=== PATIENT | female | born 1930 | race Caucasian/White ===

== ENCOUNTER 2018-09-26 09:10 | Emergency (ER) | payer MEDICARE ==
[2018-09-26 09:27] VITALS: BP 153/88; PULSE 84; O2SAT 95
--- NOTE | 2018-09-26 09:27 | ERPHSYRPT ---
- History of Present Illness Time Seen by Provider: 09/26/18 09:20 Source: patient, family Exam Limitations: no limitations Physician History: 87 y/o white female attempted to remove her pants and tripped over them. occurred last pm. no head or neck injury. however, she has tenderness across lower back and upper bony pelvis. no other complaints. pt ambulates fine but sore. Timing/Duration: other (last night) Method of Injury: fall Quality: aching Back Pain Location: lumbar spine Severity of Pain-Max: mild Severity of Pain-Current: mild Modifying Factors: Improves With: movement Associated Symptoms: denies symptoms Previous symptoms: no prior history Allergies/Adverse Reactions: No Known Drug Allergies Allergy (Verified 09/26/18 09:15) Home Medications: Amlodipine Besylate 5 mg PO DAILY 09/26/18 [History] Aspirin EC 81 mg [Ecotrin 81 mg] 81 mg PO DAILY 09/26/18 [History] Lisinopril 20 mg [Zestril 20 MG] 30 mg PO BID 09/26/18 [History] Meclizine HCl 12.5 mg PO TID 09/26/18 [History] Metoprolol Tartrate 25 mg PO BID 09/26/18 [History] - Review of Systems Constitutional: No Symptoms Eyes: No Symptoms Ears, Nose, & Throat: No Symptoms Respiratory: No Symptoms Cardiac: No Symptoms Abdominal/Gastrointestinal: No Symptoms Genitourinary Symptoms: No Symptoms Musculoskeletal: Back Pain, Fall Skin: No Symptoms Neurological: No Symptoms Psychological: No Symptoms Endocrine: No Symptoms Hematologic/Lymphatic: No Symptoms Immunological/Allergic: No Symptoms All Other Systems: Reviewed and Negative - Past Medical History Pertinent Past Medical History: Yes Neurological History: No Pertinent History ENT History: No Pertinent History Cardiac History: No Pertinent History Respiratory History: No Pertinent History Endocrine Medical History: No Pertinent History Musculoskeletal History: Degenerative Disk Disease GI Medical History: No Pertinent History History: No Pertinent History Psycho-Social History: No Pertinent History Female Reproductive Disorders: No Pertinent History - Past Surgical History Neuro Surgical History: No Pertinent History Cardiac: No Pertinent History Respiratory: No Pertinent History Gastrointestinal: No Pertinent History Genitourinary: No Pertinent History Musculoskeletal: No Pertinent History Female Surgical History: No Pertinent History - Nursing Vital Signs Nursing Vital Signs: Initial Vital Signs Temperature 97.4 F 09/26/18 09:16 Pulse Rate 84 09/26/18 09:16 Respiratory Rate 18 09/26/18 09:16 Blood Pressure 153/88 09/26/18 09:16 O2 Sat by Pulse Oximetry 95 09/26/18 09:16 Pain Scale Pain Intensity [Lower Back] 4 Pain Intensity 4 - Physical Exam General Appearance: no apparent distress, alert Eye Exam: PERRL/EOMI Ears, Nose, Throat Exam: normal ENT inspection, moist mucous membranes Neck Exam: normal inspection, non-tender, supple, full range of motion Respiratory Exam: normal breath sounds, lungs clear, airway intact, No chest tenderness, No respiratory distress, No accessory muscle use, No rhonchi, No wheezing, No stridor Cardiovascular Exam: regular rate/rhythm, normal heart sounds, normal peripheral pulses Gastrointestinal Exam: soft, normal bowel sounds, No tenderness, No guarding Pelvic Exam: not done Rectal Exam: not done Back Exam: other (tenderness across lumbar level and top of bilat iliac crests) Extremity Exam: normal inspection, normal range of motion, pelvis stable Neurologic Exam: alert, oriented x 3, cooperative, 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 no acute fx or dislocation. Counseled pt/family regarding: diagnosis, need for follow-up, rad results - Departure Time of Disposition: 10:24 Departure Disposition: Home Clinical Impression: Fall, Contusion Condition: Stable Critical Care Time: No Referrals: EVERARDO ADAN MD [Primary Care Provider] - Additional Instructions: use plain tylenol during the day and norco at night if needed. follow up with primary doctor for persistent symptoms Prescriptions: Hydrocodone/APAP 5-325 Tab^^^ [[place] 5-325 Tablet^^^] 1 tab PO QHS PRN #4 tablet MDD 1 PRN Reason: Pain
--- NOTE | 2018-09-26 10:19 | XRAY ---
Indication: Pain following fall. Comparison: None 3 views of the lumbar spine demonstrates 5 lumbar vertebral segments with osteopenia, mild/moderate multilevel degenerative spondylosis greatest at L4-L5, and heavy scattered vascular calcifications. No other bony, articular, or soft tissue abnormalities.
--- NOTE | 2018-09-26 10:21 | XRAY ---
Indication: Pain following fall. 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 No other bony, articular, or soft tissue abnormalities.
== END 2018-09-26 11:09 | disposition home or self-care (01) ==
LOC: ED 09:10
DX: S30.0XXA Contusion of lower back and pelvis, initial encounter (principal); M54.5 Low back pain; W01.10XA Fall on same level from slipping, tripping and stumbling with subsequent striking against unspecified object, initial encounter; Z79.899 Other long term (current) drug therapy
CPT/HCPCS: 72100; 72170; 99283

== ENCOUNTER 2019-08-29 15:28 | Observation (INO) | payer MEDICARE ==
[2019-08-29] MEDS ORDERED: ANTIVERT 25 MG PO ONE (16:10)
[2019-08-29] MEDS ORDERED: ZOFRAN ODT 4 MG PO ONE (16:11)
[2019-08-29] MEDS ORDERED: ANTIVERT 25 MG ONE (16:25)
[2019-08-29] MEDS ORDERED: ZOFRAN ODT 4 MG ONE (16:26)
--- NOTE | 2019-08-29 17:26 | ERPHSYRPT ---
- History of Present Illness Time Seen by Provider: 08/29/19 16:00 Source: patient Exam Limitations: no limitations Patient Subjective Stated Complaint: STATES HAS HX VERTIGO. TAKES MECLIZINE. TODAY IS HAVING INCREASED DIZZINESS TODAY WITH NAUSEA. UNABLE TO WALK AT THIS TIME AND IS NAUEATED. TOOK TWO MECLIZINE TODAY WITHOUT RELIEF. DENIES ANY OTHER C/O. Triage Nursing Assessment: TO ROOM PER W/C. SKIN W/D, COLOR NORMAL, RESP EASY. PATIENT UNABLE TO TRANSFER TO BED PER SELF. ALSO HAVING NAUSEA AT THIS TIME. Physician History: 88 years old female with history of hypertension,vertigo present in the ER with chief complaint of worsening vertiginous symptoms for the last 2-3 days, intermittent, has taken 212.5 mg of meclizine but not much earlier. She was getting off balance area. Did not report any follow. Denies any numbness tingling or focal weakness. Patient reports room spinning sensation and it gets worse whenever she gets up or tries to walk and better with lying down/ testing. Pupils are similar symptoms multiple times in the past.patient reports she was seen at the [facility] recently with negative CAT scan and blood work was sent home off her some IV medications air. She does not want any kind of workup done here but wants some symptomatic treatment. Timing/Duration: day(s) (3), intermittent, worse Severity: moderate Deficits: off balance Baseline/Normal Cognition: alert oriented x 3 Current Cognition: alert oriented x 3 Baseline Gait: walks w/o assistance Associated Symptoms: nausea, No vomiting, No weakness, No numbness/tingling in legs/feet, No paresthesia Allergies/Adverse Reactions: No Known Drug Allergies Allergy (Verified 08/29/19 15:54) Home Medications: Amlodipine Besylate 5 mg PO DAILY 09/26/18 [History] Aspirin EC 81 mg [Ecotrin 81 mg] 81 mg PO DAILY 09/26/18 [History] Lisinopril 20 mg [Zestril 20 MG] 30 mg PO BID 09/26/18 [History] Meclizine HCl 12.5 mg PO TID 09/26/18 [History] Metoprolol Tartrate 25 mg PO BID 09/26/18 [History] Hx Tetanus, Diphtheria Vaccination/Date Given: No Hx Influenza Vaccination/Date Given: Yes Hx Pneumococcal Vaccination/Date Given: Yes - Review of Systems Constitutional: No Symptoms Eyes: No Symptoms Ears, Nose, & Throat: No Symptoms Respiratory: No Symptoms Cardiac: No Symptoms Abdominal/Gastrointestinal: No Symptoms Genitourinary Symptoms: No Symptoms Musculoskeletal: No Symptoms Skin: No Symptoms Neurological: Vertigo Psychological: No Symptoms Endocrine: No Symptoms Hematologic/Lymphatic: No Symptoms - Past Medical History Pertinent Past Medical History: Yes Neurological History: No Pertinent History ENT History: No Pertinent History Cardiac History: No Pertinent History Respiratory History: No Pertinent History Endocrine Medical History: No Pertinent History Musculoskeletal History: Degenerative Disk Disease GI Medical History: No Pertinent History History: No Pertinent History Psycho-Social History: No Pertinent History Female Reproductive Disorders: No Pertinent History - Past Surgical History Past Surgical History: Yes Neuro Surgical History: No Pertinent History Cardiac: No Pertinent History Respiratory: No Pertinent History Gastrointestinal: Appendectomy Genitourinary: No Pertinent History Musculoskeletal: No Pertinent History Female Surgical History: No Pertinent History Other Surgical History: vani shoulders, rt hip replacement - Social History Smoking Status: Never smoker Exposure to second hand smoke: No Drug Use: none Patient Lives Alone: Yes - Female History Hx Now: No - Nursing Vital Signs Nursing Vital Signs: Initial Vital Signs Temperature 97.4 F 08/29/19 15:40 Pulse Rate 69 08/29/19 15:40 Respiratory Rate 18 08/29/19 15:40 Blood Pressure 158/96 08/29/19 15:40 O2 Sat by Pulse Oximetry 93 L 08/29/19 15:40 Pain Scale Pain Intensity 0 - Jenelle Coma Scale Best Eye Response ([place]): (4) open spontaneously Best Verbal Response (Jenelle): (5) oriented Best Motor Response (Jenelle): (6) obeys commands [place] Total: 15 - Physical Exam General Appearance: no apparent distress, alert Eye Exam: bilateral eye: normal inspection, PERRL, EOMI Ears, Nose, Throat Exam: normal ENT inspection, TMs normal, pharynx normal, moist mucous membranes Neck Exam: normal inspection, non-tender, supple, full range of motion Respiratory: normal breath sounds, lungs clear Cardiovascular: regular rate/rhythm, normal heart sounds Gastrointestinal: soft, normal bowel sounds, No tenderness Back Exam: normal inspection Extremity Exam: normal inspection, normal range of motion, pelvis stable Mental Status: alert, oriented x 3, cooperative manufacturing engineering technician Exam: normal hearing, normal speech, PERRL, No facial droop, No facial paresthesias Coordination/Gait: normal finger to nose, normal cerebellar function Motor/Sensory: no motor deficit, no sensory deficit, no pronator drift, negative Babinski's sign, No sensory deficit DTR: bicep (R): 2+, bicep (L): 2+, knee (R): 2+, knee (L): 2+ Skin Exam: normal color SpO2 Interpretation: normal SpO2: 91 O2 Delivery: Room Air - Course Nursing assessment & vital signs reviewed: Yes Ordered Tests: Medication Summary Discontinued Medications Generic Name Dose Route Start Last Admin Trade Name Huber PRN Reason Stop Dose Admin Meclizine HCl 25 mg 08/29/19 16:10 08/29/19 16:27 Antivert 25 Mg PO 08/29/19 16:11 25 mg STAT ONE Administration Meclizine HCl Confirm 08/29/19 16:25 Antivert 25 Mg Administered 08/29/19 16:26 Dose 25 mg .ROUTE .STK-MED ONE Ondansetron HCl 4 mg 08/29/19 16:11 08/29/19 16:26 Zofran Odt 4 Mg PO 08/29/19 16:12 4 mg STAT ONE Administration Ondansetron HCl Confirm 08/29/19 16:26 Zofran Odt 4 Mg Administered 08/29/19 16:27 Dose 4 mg .ROUTE .STK-MED ONE - Progress Progress: improved Progress Note: 88 years old is evaluated for vertiginous symptoms. It seems symptomatically as. Her vertigo but cannot rule central out, recommended an off work Will workup but patient refused and wants only some symptomatic treatment as she had a full workup done recently and was negative. She does not have any focal neuro deficits are present. Discussed with patient and friend in detail about the risks of leaving without any workup, could be a stroke which she understands but still ddoes not want to do anything. I have given her meclizine , the evaluation her symptoms are completely improved and she wants to leave. She is given anticipatory warnings/guidance needing return to ER for any worsening she seems understanding. Patient doesdoes not seem confused altered at all. 08/29/19 17:28 Counseled pt/family regarding: need for follow-up - Departure Departure Disposition: Home Clinical Impression: Vertigo Condition: Stable Critical Care Time: No Referrals: EVERARDO ADAN MD [Primary Care Provider] - Instructions: Vertigo (a Type of Dizziness) (DC) Additional Instructions: drink plenty of fluids. Followup with primary care physician for reevaluation in 2-3 days. Continue with meclizine at home as recommended. Return to ER for worsening vertiginous symptoms, getting off balance, numbness tingling/weakness /visual disturbance etc.
[2019-08-29] MEDS ORDERED: Sodium Chloride 0.9% 1000 ML 1,000 ML IV STA (18:43)
[2019-08-29 19:02] LABS: BASOPHIL % 0.2 % (0.0-0.4); Basophil (Absolute #) 0.02 (0-0.4); Eosinophil % 0.5 % (0.00-5.0); Eosinophil (Absolute #) 0.05 (0-0.5); Hematocrit 37.7 % (35-47); Hemoglobin 12.3 gm/dl (12.0-16.0); Lymphocyte (Absolute #) 1.23 (1.0-4.6); Lymphocytes % 12.7 % (24.0-44.0); Mean Cell Volume 101.1 fl (78-100); Mean Corpuscular Hgb Concent. 32.6 g/dl (32-36); Mean Platelet Volume 9.8 fl (7.5-11.0); Monocyte (Absolute #) 0.35 (0.0-1.3); Monocytes % 3.6 % (0.0-12.0); Platelet Count 216 K/mm3 (150-450); Red Blood Count 3.73 M/mm3 (4.1-5.4); Red Cell Distribution Width 12.5 % (11.5-14.0); White Blood Count 9.7 K/mm3 (4.0-10.5)
[2019-08-29] MEDS ORDERED: Sodium Chloride 0.9% 1000 ML 1,000 ML ONE (19:11)
[2019-08-29 19:15] LABS: Amourphous Crystal FEW /HPF (NEGATIVE); Appearance CLOUDY (CLEAR); Bilirubin NEGATIVE (NEGATIVE); Blood NEGATIVE Ery/ul (0-5); Epithelial Cells RARE /HPF (FEW); Glucose NEGATIVE (NEGATIVE); Ketones NEGATIVE (NEGATIVE); Leukocyte Esterase TRACE (NEGATIVE); Nitrite NEGATIVE (NEGATIVE); Protein,Urine Dip NEGATIVE (Negative); Specific Gravity 1.017 (1.005-1.025); Urobilinogen NEGATIVE mg/dL (0-1)
[2019-08-29 19:19] LABS: ALBUMIN 4.4 g/dL (3.5-5.0); ANION GAP 13.4 MEQ/L (5-15); BILIRUBIN,TOTAL 0.3 mg/dL (0.2-1.3); Creatinine 1 0.98 mg/dL (0.52-1.04); MAGNESIUM 2.1 mg/dL (1.6-2.3); Total Protein 8.4 g/dL (6.3-8.2)
[2019-08-29] MEDS ORDERED: Zofran 4 MG/2 ML VIAL IV ONE (19:19)
[2019-08-29] MEDS ORDERED: Zofran 4 MG/2 ML VIAL ONE (19:20)
[2019-08-29] MEDS ORDERED: NovoLOG Insulin SQ PRN (21:25)
[2019-08-29] MEDS ORDERED: Zofran 4 MG/2 ML VIAL IV PRN ×2 (21:25→22:11)
[2019-08-29] MEDS ORDERED: TYLENOL 325 MG PO PRN (21:25)
[2019-08-29] MEDS ORDERED: Sodium Chloride 0.9% 1000 ML 1,000 ML IV SCH (21:25)
[2019-08-29] MEDS ORDERED: ANTIVERT 25 MG PO SCH (22:00)
[2019-08-30 04:40] LABS: ANION GAP 9.8 MEQ/L (5-15); BLOOD UREA NITROGEN 15 mg/dL (7-17); CHLORIDE 105 mmol/L (98-107); Calcium 8.6 mg/dL (8.4-10.2); Carbon Dioxide 28 mmol/L (22-30); Creatinine 1 0.82 mg/dL (0.52-1.04); Glucose 96 mg/dL (74-106); Potassium 4.1 mmol/L (3.5-5.1); SODIUM 139 mmol/L (137-145)
[2019-08-30 06:11] LABS: Absolute Neutrophil Ct (ANC) 5.42 (1.4-6.9); BASOPHIL % 0.1 % (0.0-0.4); Basophil (Absolute #) 0.01 (0-0.4); Eosinophil % 1.3 % (0.00-5.0); Hematocrit 34.8 % (35-47); Hemoglobin 11.6 gm/dl (12.0-16.0); Lymphocyte (Absolute #) 1.53 (1.0-4.6); Mean Cell Volume 101.2 fl (78-100); Mean Corpuscular Hemoglobin 33.7 pg (26-32); Mean Corpuscular Hgb Concent. 33.3 g/dl (32-36); Mean Platelet Volume 10.8 fl (7.5-11.0); Monocyte (Absolute #) 0.58 (0.0-1.3); Monocytes % 7.6 % (0.0-12.0); Platelet Count 149 K/mm3 (150-450); Red Blood Count 3.44 M/mm3 (4.1-5.4); Red Cell Distribution Width 12.3 % (11.5-14.0); White Blood Count 7.6 K/mm3 (4.0-10.5)
--- NOTE | 2019-08-30 07:50 | PCM.HP ---
History of Present Illness - Chief Complaint Chief Complaint: orthostatic hypotension History of Present Illness: is a 88 year old female with history of hypertension,vertigo present in the ER with chief complaint of worsening vertiginous symptoms for the last 2-3 days, intermittent, has taken 212.5 mg of meclizine but not much earlier. She was getting off balance area. Did not report any fall. Denies any numbness tingling or focal weakness. Patient reports room spinning sensation and it gets worse whenever she gets up or tries to walk and better with lying down/testing. Pupils are similar symptoms multiple times in the past.patient reports she was seen at the [facility] recently with negative CAT scan and blood work was sent home off her some IV medications air. She does not want any kind of workup done here but wants some symptomatic treatment. Timing/Duration: day(s) (3), intermittent, worse Severity: moderate Deficits: off balance Baseline/Normal Cognition: alert oriented x 3 Current Cognition: alert oriented x 3 Baseline Gait: walks w/o assistance Associated Symptoms: nausea, No vomiting, No weakness, No numbness/tingling in legs/feet, No paresthesia - Review of Systems Constitutional: No Fever, No Chills Eyes: No Symptoms Ears, Nose, & Throat: No Symptoms Respiratory: No Cough, No Short Of Breath Cardiac: No Chest Pain, No Edema, No Syncope Abdominal/Gastrointestinal: No Abdominal Pain, No Nausea, No Vomiting, No Diarrhea Genitourinary Symptoms: No Dysuria Musculoskeletal: No Back Pain, No Neck Pain Skin: No Rash Neurological: No Dizziness, No Focal Weakness, No Sensory Changes Psychological: No Symptoms Endocrine: No Symptoms Hematologic/Lymphatic: No Symptoms Immunological/Allergic: No Symptoms Medications & Allergies Home Medications: Home Medication List Amlodipine Besylate 5 mg PO DAILY 09/26/18 [History Confirmed 08/29/19] Aspirin EC 81 mg [Ecotrin 81 mg] 81 mg PO DAILY 09/26/18 [History Confirmed 08/29/19] Lisinopril 20 mg [Zestril 20 MG] 30 mg PO BID 09/26/18 [History Confirmed 08/29/19] Meclizine HCl 12.5 mg PO TID 09/26/18 [History Confirmed 08/29/19] Metoprolol Tartrate 25 mg PO BID 09/26/18 [History Confirmed 08/29/19] Cranberry Fruit Concentrate [Self Point Health] 450 mg PO BID 08/29/19 [History Confirmed 08/29/19] Multivit-Min/FA/Lycopen/Lutein [Centrum Silver Tablet] 1 each PO DAILY 08/29/19 [History Confirmed 08/29/19] Allergies/Adverse Reactions: Allergies Allergy/AdvReac Type Severity Reaction Status Date / Time No Known Drug Allergies Allergy Verified 08/29/19 15:54 - Past Medical History Past Medical History: Yes Neurological History: No Pertinent History ENT History: Cataracts Cardiac History: Hypertension Respiratory History: No Pertinent History Endocrine Medical History: No Pertinent History Musculoskelatal History: Arthritis GI Medical History: No Pertinent History History: No Pertinent History Pyscho-Social History: Anxiety Reproductive Disorders: No Pertinent History - Female History Are you now?: No - Past Surgical History Past Surgical History: Yes Neuro Surgical History: No Pertinent History Cardiac History: No Pertinent History Respiratory Surgery: No Pertinent History GI Surgical History: Appendectomy Genitourinary Surgical Hx: No Pertinent History Musculskeletal Surgical Hx: No Pertinent History Female Surgical History: No Pertinent History Other Surgical History: vani shoulders, rt hip replacement - Social History Smoking Status: Never smoker Exposure to second hand smoke: No Alcohol: None Drug Use: none - Physical Exam Vital Signs: Vital Signs - 24 hr Temp Pulse Resp BP Pulse Ox 08/30/19 07:04 97.8 F 68 18 114/66 95 08/30/19 04:00 97.9 F 73 18 112/67 94 L 08/30/19 00:00 97.9 F 102 H 20 137/77 95 08/29/19 23:28 97.9 F 102 H 20 137/77 95 08/29/19 19:27 81 16 145/78 08/29/19 18:00 75 18 164/84 93 L 08/29/19 17:30 91 L 08/29/19 17:10 69 18 125/74 91 L 08/29/19 15:40 97.4 F 69 18 158/96 93 L General Appearance: no apparent distress, alert Neurologic Exam: alert, oriented x 3, cooperative, normal mood/affect, nml cerebellar function, nml station & gait, sensation nml, No motor deficits Eye Exam: PERRL/EOMI, eyes nml inspection Ears, Nose, Throat Exam: normal ENT inspection, TMs normal, pharynx normal, moist mucous membranes Neck Exam: normal inspection, non-tender, supple, full range of motion Respiratory Exam: normal breath sounds, lungs clear, No respiratory distress Cardiovascular Exam: regular rate/rhythm, normal heart sounds, normal peripheral pulses Gastrointestinal/Abdomen Exam: soft, normal bowel sounds, No tenderness, No mass Back Exam: normal inspection, normal range of motion, No CVA tenderness, No vertebral tenderness Extremity Exam: normal inspection, normal range of motion, pelvis stable Skin Exam: normal color, warm, dry, No rash Lymphatic Exam: No adenopathy Results - Labs Lab/Micro Results: Lab Results-Last 24 Hours 08/29/19 08/29/19 08/29/19 Range/Units 18:40 18:40 18:40 WBC 9.7 (4.0-10.5) K/mm3 RBC 3.73 L (4.1-5.4) M/mm3 Hgb 12.3 (12.0-16.0) gm/dl Hct 37.7 (35-47) % MCV 101.1 H (78-100) fl MCH 33.0 H (26-32) pg MCHC 32.6 (32-36) g/dl RDW 12.5 (11.5-14.0) % Plt Count 216 (150-450) K/mm3 MPV 9.8 (7.5-11.0) fl Gran % 83.0 H (36.0-66.0) % Eos # (Auto) 0.05 (0-0.5) Absolute Lymphs (auto) 1.23 (1.0-4.6) Absolute Monos (auto) 0.35 (0.0-1.3) Lymphocytes % 12.7 L (24.0-44.0) % Monocytes % 3.6 (0.0-12.0) % Eosinophils % 0.5 (0.00-5.0) % Basophils % 0.2 (0.0-0.4) % Absolute Granulocytes 8.00 H (1.4-6.9) Basophils # 0.02 (0-0.4) Sodium 138 (137-145) mmol/L Potassium 4.0 (3.5-5.1) mmol/L Chloride 100 (98-107) mmol/L Carbon Dioxide 29 (22-30) mmol/L Anion Gap 13.4 (5-15) MEQ/L BUN 20 H (7-17) mg/dL Creatinine 0.98 (0.52-1.04) mg/dL Estimated GFR 56.8 ML/MIN Glucose 143 H (74-106) mg/dL Lactic Acid (0.4-2.0) Calcium 9.0 (8.4-10.2) mg/dL Magnesium 2.1 (1.6-2.3) mg/dL Total Bilirubin 0.30 (0.2-1.3) mg/dL AST 27 (14-36) U/L ALT 14 (0-35) U/L Alkaline Phosphatase 98 (38-126) U/L Troponin I < 0.012 (0.000-0.034) ng/mL Serum Total Protein 8.4 H (6.3-8.2) g/dL Albumin 4.4 (3.5-5.0) g/dL Urine Color (YELLOW) Urine Appearance (CLEAR) Urine pH (5-6) Ur Specific Pratts (1.005-1.025) Urine Protein (Negative) Urine Ketones (NEGATIVE) Urine Blood (0-5) Juancho/ul Urine Nitrite (NEGATIVE) Urine Bilirubin (NEGATIVE) Urine Urobilinogen (0-1) mg/dL Ur Leukocyte Esterase (NEGATIVE) Urine WBC (Auto) (0-5) /HPF Urine RBC (Auto) (0-2) /HPF U Epithel Cells (Auto) (FEW) /HPF Urine Bacteria (Auto) (NEGATIVE) /HPF Amorphous Crystals (NEGATIVE) /HPF Urine Culture Reflexed (NO) Urine Glucose (NEGATIVE) mg/dL 08/29/19 08/29/19 08/29/19 Range/Units 18:55 18:59 22:02 WBC (4.0-10.5) K/mm3 RBC (4.1-5.4) M/mm3 Hgb (12.0-16.0) gm/dl Hct (35-47) % MCV (78-100) fl MCH (26-32) pg MCHC (32-36) g/dl RDW (11.5-14.0) % Plt Count (150-450) K/mm3 MPV (7.5-11.0) fl Gran % (36.0-66.0) % Eos # (Auto) (0-0.5) Absolute Lymphs (auto) (1.0-4.6) Absolute Monos (auto) (0.0-1.3) Lymphocytes % (24.0-44.0) % Monocytes % (0.0-12.0) % Eosinophils % (0.00-5.0) % Basophils % (0.0-0.4) % Absolute Granulocytes (1.4-6.9) Basophils # (0-0.4) Sodium (137-145) mmol/L Potassium (3.5-5.1) mmol/L Chloride (98-107) mmol/L Carbon Dioxide (22-30) mmol/L Anion Gap (5-15) MEQ/L BUN (7-17) mg/dL Creatinine (0.52-1.04) mg/dL Estimated GFR ML/MIN Glucose (74-106) mg/dL Lactic Acid 1.4 (0.4-2.0) Calcium (8.4-10.2) mg/dL Magnesium (1.6-2.3) mg/dL Total Bilirubin (0.2-1.3) mg/dL AST (14-36) U/L ALT (0-35) U/L Alkaline Phosphatase (38-126) U/L Troponin I < 0.012 (0.000-0.034) ng/mL Serum Total Protein (6.3-8.2) g/dL Albumin (3.5-5.0) g/dL Urine Color YELLOW (YELLOW) Urine Appearance CLOUDY (CLEAR) Urine pH 8.0 (5-6) Ur Specific Pratts 1.017 (1.005-1.025) Urine Protein NEGATIVE (Negative) Urine Ketones NEGATIVE (NEGATIVE) Urine Blood NEGATIVE (0-5) Juancho/ul Urine Nitrite NEGATIVE (NEGATIVE) Urine Bilirubin NEGATIVE (NEGATIVE) Urine Urobilinogen NEGATIVE (0-1) mg/dL Ur Leukocyte Esterase TRACE (NEGATIVE) Urine WBC (Auto) 16-25 (0-5) /HPF Urine RBC (Auto) 3-5 (0-2) /HPF U Epithel Cells (Auto) RARE (FEW) /HPF Urine Bacteria (Auto) NONE (NEGATIVE) /HPF Amorphous Crystals FEW (NEGATIVE) /HPF Urine Culture Reflexed YES (NO) Urine Glucose NEGATIVE (NEGATIVE) mg/dL 08/30/19 08/30/19 08/30/19 Range/Units 00:50 04:08 04:08 WBC 7.6 (4.0-10.5) K/mm3 RBC 3.44 L (4.1-5.4) M/mm3 Hgb 11.6 L (12.0-16.0) gm/dl Hct 34.8 L (35-47) % MCV 101.2 H (78-100) fl MCH 33.7 H (26-32) pg MCHC 33.3 (32-36) g/dl RDW 12.3 (11.5-14.0) % Plt Count 149 L (150-450) K/mm3 MPV 10.8 (7.5-11.0) fl Gran % 71.0 H (36.0-66.0) % Eos # (Auto) 0.10 (0-0.5) Absolute Lymphs (auto) 1.53 (1.0-4.6) Absolute Monos (auto) 0.58 (0.0-1.3) Lymphocytes % 20.0 L (24.0-44.0) % Monocytes % 7.6 (0.0-12.0) % Eosinophils % 1.3 (0.00-5.0) % Basophils % 0.1 (0.0-0.4) % Absolute Granulocytes 5.42 (1.4-6.9) Basophils # 0.01 (0-0.4) Sodium (137-145) mmol/L Potassium (3.5-5.1) mmol/L Chloride (98-107) mmol/L Carbon Dioxide (22-30) mmol/L Anion Gap (5-15) MEQ/L BUN (7-17) mg/dL Creatinine (0.52-1.04) mg/dL Estimated GFR ML/MIN Glucose (74-106) mg/dL Lactic Acid (0.4-2.0) Calcium (8.4-10.2) mg/dL Magnesium (1.6-2.3) mg/dL Total Bilirubin (0.2-1.3) mg/dL AST (14-36) U/L ALT (0-35) U/L Alkaline Phosphatase (38-126) U/L Troponin I < 0.012 < 0.012 (0.000-0.034) ng/mL Serum Total Protein (6.3-8.2) g/dL Albumin (3.5-5.0) g/dL Urine Color (YELLOW) Urine Appearance (CLEAR) Urine pH (5-6) Ur Specific Pratts (1.005-1.025) Urine Protein (Negative) Urine Ketones (NEGATIVE) Urine Blood (0-5) Juancho/ul Urine Nitrite (NEGATIVE) Urine Bilirubin (NEGATIVE) Urine Urobilinogen (0-1) mg/dL Ur Leukocyte Esterase (NEGATIVE) Urine WBC (Auto) (0-5) /HPF Urine RBC (Auto) (0-2) /HPF U Epithel Cells (Auto) (FEW) /HPF Urine Bacteria (Auto) (NEGATIVE) /HPF Amorphous Crystals (NEGATIVE) /HPF Urine Culture Reflexed (NO) Urine Glucose (NEGATIVE) mg/dL 08/30/19 08/30/19 Range/Units 04:08 06:45 WBC (4.0-10.5) K/mm3 RBC (4.1-5.4) M/mm3 Hgb (12.0-16.0) gm/dl Hct (35-47) % MCV (78-100) fl MCH (26-32) pg MCHC (32-36) g/dl RDW (11.5-14.0) % Plt Count (150-450) K/mm3 MPV (7.5-11.0) fl Gran % (36.0-66.0) % Eos # (Auto) (0-0.5) Absolute Lymphs (auto) (1.0-4.6) Absolute Monos (auto) (0.0-1.3) Lymphocytes % (24.0-44.0) % Monocytes % (0.0-12.0) % Eosinophils % (0.00-5.0) % Basophils % (0.0-0.4) % Absolute Granulocytes (1.4-6.9) Basophils # (0-0.4) Sodium 139 (137-145) mmol/L Potassium 4.1 (3.5-5.1) mmol/L Chloride 105 (98-107) mmol/L Carbon Dioxide 28 (22-30) mmol/L Anion Gap 9.8 (5-15) MEQ/L BUN 15 (7-17) mg/dL Creatinine 0.82 (0.52-1.04) mg/dL Estimated GFR > 60.0 ML/MIN Glucose 96 (74-106) mg/dL Lactic Acid (0.4-2.0) Calcium 8.6 (8.4-10.2) mg/dL Magnesium (1.6-2.3) mg/dL Total Bilirubin (0.2-1.3) mg/dL AST (14-36) U/L ALT (0-35) U/L Alkaline Phosphatase (38-126) U/L Troponin I < 0.012 (0.000-0.034) ng/mL Serum Total Protein (6.3-8.2) g/dL Albumin (3.5-5.0) g/dL Urine Color (YELLOW) Urine Appearance (CLEAR) Urine pH (5-6) Ur Specific Pratts (1.005-1.025) Urine Protein (Negative) Urine Ketones (NEGATIVE) Urine Blood (0-5) Juancho/ul Urine Nitrite (NEGATIVE) Urine Bilirubin (NEGATIVE) Urine Urobilinogen (0-1) mg/dL Ur Leukocyte Esterase (NEGATIVE) Urine WBC (Auto) (0-5) /HPF Urine RBC (Auto) (0-2) /HPF U Epithel Cells (Auto) (FEW) /HPF Urine Bacteria (Auto) (NEGATIVE) /HPF Amorphous Crystals (NEGATIVE) /HPF Urine Culture Reflexed (NO) Urine Glucose (NEGATIVE) mg/dL - Radiology Impressions Radiology Exams & Impressions: Radiology Procedures Category Date Time Status ABDOMEN AND PELVIS W&WO CONTRA [CT] Routine Exams 08/30/19 07:13 Ordered CHEST 1 VIEW (PORTABLE) Stat Exams 08/29/19 18:44 Taken CHEST W/WO CONTRAST [CT] Routine Exams 08/30/19 07:13 Ordered HEAD WITHOUT CONTRAST [CT] Stat Exams 08/29/19 18:44 Taken Assessment/Plan (1) Orthostatic dizziness Current Visit: Yes Status: Acute Assessment & Plan: Last Vital Signs Temp 97.8 F 08/30/19 07:04 Pulse 68 08/30/19 07:04 Resp 18 08/30/19 07:04 BP 114/66 08/30/19 07:04 Pulse Ox 95 08/30/19 07:04 Allergies No Known Drug Allergies Allergy (Verified 08/29/19 15:54) Active Medications Acetaminophen (Tylenol 325 Mg) 650 mg PO Q4H PRN PRN PRN Reason: PAIN AND/OR FEVER Stop: 09/28/19 21:24 Sodium Chloride (Sodium Chloride 0.9% 1000 Ml) 1,000 mls @ 100 mls/hr IV .Q10H YURI Stop: 09/28/19 21:24 Last Admin: 08/29/19 21:54 Dose: 100 mls/hr Insulin Aspart (Novolog Insulin) 0 unit SQ UD PRN PRN Reason: HYPERGLYCEMIA Stop: 09/28/19 21:24 Meclizine HCl (Antivert 25 Mg) 25 mg PO TID YURI Stop: 09/28/19 21:59 Last Admin: 08/29/19 22:16 Dose: 25 mg Ondansetron HCl (Zofran 4 Mg/2 Ml Vial) 4 mg IV Q4H PRN PRN PRN Reason: NAUSEA/VOMITING Stop: 09/28/19 22:10 Intake & Output 08/29/19 08/30/19 11:59 11:59 Intake Total 1188 Output Total 1200 Balance -12 Weight 64.7 kg Orders 08/30/19 07:13 ABDOMEN AND PELVIS W&WO CONTRA [CT] Routine CHEST W/WO CONTRAST [CT] Routine Lab Tests 08/29/19 08/29/19 08/29/19 18:40 18:40 18:40 WBC 9.7 RBC 3.73 L Hgb 12.3 Hct 37.7 MCV 101.1 H MCH 33.0 H MCHC 32.6 RDW 12.5 Plt Count 216 MPV 9.8 Gran % 83.0 H Eos # (Auto) 0.05 Absolute Lymphs (auto) 1.23 Absolute Monos (auto) 0.35 Lymphocytes % 12.7 L Monocytes % 3.6 Eosinophils % 0.5 Basophils % 0.2 Absolute Granulocytes 8.00 H Basophils # 0.02 Sodium 138 Potassium 4.0 Chloride 100 Carbon Dioxide 29 Anion Gap 13.4 BUN 20 H Creatinine 0.98 Estimated GFR 56.8 Glucose 143 H Lactic Acid Calcium 9.0 Magnesium 2.1 Total Bilirubin 0.30 AST 27 ALT 14 Alkaline Phosphatase 98 Troponin I < 0.012 Serum Total Protein 8.4 H Albumin 4.4 Urine Color Urine Appearance Urine pH Ur Specific Pratts Urine Protein Urine Ketones Urine Blood Urine Nitrite Urine Bilirubin Urine Urobilinogen Ur Leukocyte Esterase Urine WBC (Auto) Urine RBC (Auto) U Epithel Cells (Auto) Urine Bacteria (Auto) Amorphous Crystals Urine Culture Reflexed Urine Glucose 08/29/19 08/29/19 08/29/19 18:55 18:59 22:02 WBC RBC Hgb Hct MCV MCH MCHC RDW Plt Count MPV Gran % Eos # (Auto) Absolute Lymphs (auto) Absolute Monos (auto) Lymphocytes % Monocytes % Eosinophils % Basophils % Absolute Granulocytes Basophils # Sodium Potassium Chloride Carbon Dioxide Anion Gap BUN Creatinine Estimated GFR Glucose Lactic Acid 1.4 Calcium Magnesium Total Bilirubin AST ALT Alkaline Phosphatase Troponin I < 0.012 Serum Total Protein Albumin Urine Color YELLOW Urine Appearance CLOUDY Urine pH 8.0 Ur Specific Pratts 1.017 Urine Protein NEGATIVE Urine Ketones NEGATIVE Urine Blood NEGATIVE Urine Nitrite NEGATIVE Urine Bilirubin NEGATIVE Urine Urobilinogen NEGATIVE Ur Leukocyte Esterase TRACE Urine WBC (Auto) 16-25 Urine RBC (Auto) 3-5 U Epithel Cells (Auto) RARE Urine Bacteria (Auto) NONE Amorphous Crystals FEW Urine Culture Reflexed YES Urine Glucose NEGATIVE 08/30/19 08/30/19 08/30/19 00:50 04:08 04:08 WBC 7.6 RBC 3.44 L Hgb 11.6 L Hct 34.8 L MCV 101.2 H MCH 33.7 H MCHC 33.3 RDW 12.3 Plt Count 149 L MPV 10.8 Gran % 71.0 H Eos # (Auto) 0.10 Absolute Lymphs (auto) 1.53 Absolute Monos (auto) 0.58 Lymphocytes % 20.0 L Monocytes % 7.6 Eosinophils % 1.3 Basophils % 0.1 Absolute Granulocytes 5.42 Basophils # 0.01 Sodium Potassium Chloride Carbon Dioxide Anion Gap BUN Creatinine Estimated GFR Glucose Lactic Acid Calcium Magnesium Total Bilirubin AST ALT Alkaline Phosphatase Troponin I < 0.012 < 0.012 Serum Total Protein Albumin Urine Color Urine Appearance Urine pH Ur Specific Pratts Urine Protein Urine Ketones Urine Blood Urine Nitrite Urine Bilirubin Urine Urobilinogen Ur Leukocyte Esterase Urine WBC (Auto) Urine RBC (Auto) U Epithel Cells (Auto) Urine Bacteria (Auto) Amorphous Crystals Urine Culture Reflexed Urine Glucose 08/30/19 08/30/19 04:08 06:45 WBC RBC Hgb Hct MCV MCH MCHC RDW Plt Count MPV Gran % Eos # (Auto) Absolute Lymphs (auto) Absolute Monos (auto) Lymphocytes % Monocytes % Eosinophils % Basophils % Absolute Granulocytes Basophils # Sodium 139 Potassium 4.1 Chloride 105 Carbon Dioxide 28 Anion Gap 9.8 BUN 15 Creatinine 0.82 Estimated GFR > 60.0 Glucose 96 Lactic Acid Calcium 8.6 Magnesium Total Bilirubin AST ALT Alkaline Phosphatase Troponin I < 0.012 Serum Total Protein Albumin Urine Color Urine Appearance Urine pH Ur Specific Pratts Urine Protein Urine Ketones Urine Blood Urine Nitrite Urine Bilirubin Urine Urobilinogen Ur Leukocyte Esterase Urine WBC (Auto) Urine RBC (Auto) U Epithel Cells (Auto) Urine Bacteria (Auto) Amorphous Crystals Urine Culture Reflexed Urine Glucose Code(s): R42 - DIZZINESS AND GIDDINESS (2) Lung mass Current Visit: Yes Status: Acute Assessment & Plan: will get CT chest and abdomen Code(s): R91.8 - OTHER NONSPECIFIC ABNORMAL FINDING OF LUNG FIELD (3) HTN (hypertension) Current Visit: Yes Status: Acute Code(s): I10 - ESSENTIAL (PRIMARY) HYPERTENSION
--- NOTE | 2019-08-30 07:51 | XRAY ---
Indication: Dizziness. History of vertigo. No known injury. Multiple contiguous axial images obtained through the head without contrast. Comparison: January 24, 2008. Patient refused to remove earrings producing beam artifact. There is age-appropriate global atrophy and minimal periarticular degenerative micro-ischemia bilaterally. No acute intracranial hemorrhage, abnormal extra-axial fluid collection, or mass effect. Fourth ventricle is midline without hydrocephalus. Bony calvarium intact. There is mild/moderate mucosal thickening of both maxillary sinuses with left maxillary sinus fluid leveling. Mastoid air cells are clear. Impression: Nonacute senile brain. Paranasal sinus disease. Comment: Preliminary interpretation was made by [facility] who reports "unremarkable sinuses. No fluid levels."
--- NOTE | 2019-08-30 07:53 | XRAY ---
Indication: Dizziness. Comparison: None Portable chest demonstrates very large hiatal hernia with distended intrathoracic stomach obscuring majority of the lung bases and cardiac silhouette. Visualized lungs clear. Bony thorax demonstrates osteopenia, degenerative changes, scoliosis, and old right proximal humeral fracture. CT chest may yield further information if clinically warranted.
[2019-08-30] MEDS ORDERED: MEDICATION INTERVENTION PO SCH (09:45)
[2019-08-30] MEDS ORDERED: NON-FORMULARY ITEM (Multivit-Min/Fa/Lycopen/Lutein [Centrum Silver Tablet] 1 EACH) PO SCH (10:00)
[2019-08-30] MEDS ORDERED: ECOTRIN 81 MG PO SCH (10:00)
[2019-08-30] MEDS ORDERED: CRANBERRY FRUIT 450 MG PO SCH (10:00)
[2019-08-30] MEDS ORDERED: Lopressor 25MG Tab PO SCH (10:00)
[2019-08-30] MEDS ORDERED: Zestril 10 MG PO SCH (10:00)
[2019-08-30] MEDS ORDERED: THERAGRAN MULTIVITAMIN PO SCH (10:00)
[2019-08-30] MEDS ORDERED: NORVASC 5 MG PO SCH (10:00)
[2019-08-30] MEDS: ANTIVERT 25 MG PO SCH ×2 (10:24→12:44)
--- NOTE | 2019-08-30 10:55 | PCM.DS ---
Discharge Summary Date of Admission: 08/29/19 21:10 Admitting Physician: EVERARDO ADAN Primary Care Provider: EVERARDO ADAN Allergies Allergies No Known Drug Allergies Allergy (Verified 08/29/19 15:54) Hospital Summary - Hospital Course Hospital Course: Last Vital Signs Temp 97.8 F 08/30/19 07:04 Pulse 68 08/30/19 07:04 Resp 18 08/30/19 08:00 BP 114/66 08/30/19 07:04 Pulse Ox 95 08/30/19 07:04 Allergies No Known Drug Allergies Allergy (Verified 08/29/19 15:54) Active Medications Acetaminophen (Tylenol 325 Mg) 650 mg PO Q4H PRN PRN PRN Reason: PAIN AND/OR FEVER Stop: 09/28/19 21:24 Amlodipine Besylate (Norvasc 5 Mg) 5 mg PO DAILY YURI Stop: 09/29/19 09:59 Last Admin: 08/30/19 10:23 Dose: 5 mg Aspirin (Ecotrin 81 Mg) 81 mg PO DAILY YURI Stop: 09/29/19 09:59 Last Admin: 08/30/19 10:27 Dose: 81 mg Sodium Chloride (Sodium Chloride 0.9% 1000 Ml) 1,000 mls @ 100 mls/hr IV .Q10H YURI Stop: 09/28/19 21:24 Last Admin: 08/29/19 21:54 Dose: 100 mls/hr Insulin Aspart (Novolog Insulin) 0 unit SQ UD PRN PRN Reason: HYPERGLYCEMIA Stop: 09/28/19 21:24 Lisinopril (Zestril 10 Mg) 30 mg PO BID YURI Stop: 09/29/19 09:59 Last Admin: 08/30/19 10:23 Dose: 30 mg Meclizine HCl (Antivert 25 Mg) 12.5 mg PO TID YURI Stop: 09/28/19 21:59 Last Admin: 08/30/19 10:24 Dose: 12.5 mg Metoprolol Tartrate (Lopressor 25mg Tab) 25 mg PO BID YURI Stop: 09/29/19 09:59 Last Admin: 08/30/19 10:23 Dose: 25 mg Miscellaneous Information (Medication Intervention) 1 each PO .RN TO CHECK ON YURI Stop: 09/29/19 09:44 Multivitamins Therapeutic (Theragran Multivitamin) 1 tab PO DAILY YURI Stop: 09/29/19 09:59 Last Admin: 08/30/19 10:22 Dose: 1 tab Ondansetron HCl (Zofran 4 Mg/2 Ml Vial) 4 mg IV Q4H PRN PRN PRN Reason: NAUSEA/VOMITING Stop: 09/28/19 22:10 Intake & Output 08/29/19 08/30/19 11:59 11:59 Intake Total 1188 Output Total 1200 Balance -12 Weight 64.7 kg Orders 08/30/19 07:13 ABDOMEN AND PELVIS W/0 CONTRAS [CT] Routine CHEST WITHOUT CONTRAST [CT] Routine 08/30/19 09:45 Medication Intervention 1 each PO .RN TO CHECK ON 08/30/19 10:00 Amlodipine Besylate 5 mg [Norvasc 5 mg] 5 mg PO DAILY Aspirin EC 81 mg [Ecotrin 81 mg] 81 mg PO DAILY Lisinopril 10 mg [Zestril 10 MG] 30 mg PO BID Metoprolol Tartrate 25 mg [Lopressor 25MG Tab] 25 mg PO BID Multivitamins,Therapeutic Tab* [Theragran Multivitamin] 1 tab PO DAILY 08/30/19 10:23 Discharge Routine Lab Tests 08/29/19 08/29/19 08/29/19 18:40 18:40 18:40 WBC 9.7 RBC 3.73 L Hgb 12.3 Hct 37.7 MCV 101.1 H MCH 33.0 H MCHC 32.6 RDW 12.5 Plt Count 216 MPV 9.8 Gran % 83.0 H Eos # (Auto) 0.05 Absolute Lymphs (auto) 1.23 Absolute Monos (auto) 0.35 Lymphocytes % 12.7 L Monocytes % 3.6 Eosinophils % 0.5 Basophils % 0.2 Absolute Granulocytes 8.00 H Basophils # 0.02 Sodium 138 Potassium 4.0 Chloride 100 Carbon Dioxide 29 Anion Gap 13.4 BUN 20 H Creatinine 0.98 Estimated GFR 56.8 Glucose 143 H Lactic Acid Calcium 9.0 Magnesium 2.1 Total Bilirubin 0.30 AST 27 ALT 14 Alkaline Phosphatase 98 Troponin I < 0.012 Serum Total Protein 8.4 H Albumin 4.4 Urine Color Urine Appearance Urine pH Ur Specific [place] Urine Protein Urine Ketones Urine Blood Urine Nitrite Urine Bilirubin Urine Urobilinogen Ur Leukocyte Esterase Urine WBC (Auto) Urine RBC (Auto) U Epithel Cells (Auto) Urine Bacteria (Auto) Amorphous Crystals Urine Culture Reflexed Urine Glucose 08/29/19 08/29/19 08/29/19 18:55 18:59 22:02 WBC RBC Hgb Hct MCV MCH MCHC RDW Plt Count MPV Gran % Eos # (Auto) Absolute Lymphs (auto) Absolute Monos (auto) Lymphocytes % Monocytes % Eosinophils % Basophils % Absolute Granulocytes Basophils # Sodium Potassium Chloride Carbon Dioxide Anion Gap BUN Creatinine Estimated GFR Glucose Lactic Acid 1.4 Calcium Magnesium Total Bilirubin AST ALT Alkaline Phosphatase Troponin I < 0.012 Serum Total Protein Albumin Urine Color YELLOW Urine Appearance CLOUDY Urine pH 8.0 Ur Specific [place] 1.017 Urine Protein NEGATIVE Urine Ketones NEGATIVE Urine Blood NEGATIVE Urine Nitrite NEGATIVE Urine Bilirubin NEGATIVE Urine Urobilinogen NEGATIVE Ur Leukocyte Esterase TRACE Urine WBC (Auto) 16-25 Urine RBC (Auto) 3-5 U Epithel Cells (Auto) RARE Urine Bacteria (Auto) NONE Amorphous Crystals FEW Urine Culture Reflexed YES Urine Glucose NEGATIVE 08/30/19 08/30/19 08/30/19 00:50 04:08 04:08 WBC 7.6 RBC 3.44 L Hgb 11.6 L Hct 34.8 L MCV 101.2 H MCH 33.7 H MCHC 33.3 RDW 12.3 Plt Count 149 L MPV 10.8 Gran % 71.0 H Eos # (Auto) 0.10 Absolute Lymphs (auto) 1.53 Absolute Monos (auto) 0.58 Lymphocytes % 20.0 L Monocytes % 7.6 Eosinophils % 1.3 Basophils % 0.1 Absolute Granulocytes 5.42 Basophils # 0.01 Sodium Potassium Chloride Carbon Dioxide Anion Gap BUN Creatinine Estimated GFR Glucose Lactic Acid Calcium Magnesium Total Bilirubin AST ALT Alkaline Phosphatase Troponin I < 0.012 < 0.012 Serum Total Protein Albumin Urine Color Urine Appearance Urine pH Ur Specific [place] Urine Protein Urine Ketones Urine Blood Urine Nitrite Urine Bilirubin Urine Urobilinogen Ur Leukocyte Esterase Urine WBC (Auto) Urine RBC (Auto) U Epithel Cells (Auto) Urine Bacteria (Auto) Amorphous Crystals Urine Culture Reflexed Urine Glucose 08/30/19 08/30/19 04:08 06:45 WBC RBC Hgb Hct MCV MCH MCHC RDW Plt Count MPV Gran % Eos # (Auto) Absolute Lymphs (auto) Absolute Monos (auto) Lymphocytes % Monocytes % Eosinophils % Basophils % Absolute Granulocytes Basophils # Sodium 139 Potassium 4.1 Chloride 105 Carbon Dioxide 28 Anion Gap 9.8 BUN 15 Creatinine 0.82 Estimated GFR > 60.0 Glucose 96 Lactic Acid Calcium 8.6 Magnesium Total Bilirubin AST ALT Alkaline Phosphatase Troponin I < 0.012 Serum Total Protein Albumin Urine Color Urine Appearance Urine pH Ur Specific [place] Urine Protein Urine Ketones Urine Blood Urine Nitrite Urine Bilirubin Urine Urobilinogen Ur Leukocyte Esterase Urine WBC (Auto) Urine RBC (Auto) U Epithel Cells (Auto) Urine Bacteria (Auto) Amorphous Crystals Urine Culture Reflexed Urine Glucose Microbiology 08/29/19 18:59 Urine, Void Urine Culture - Preliminary NO GROWTH TO DATE CT abdomen and pelvis showed large intratoracic hiatal hernia. - Vitals & Intake/Output Vital Signs: Vital Signs Temperature 97.8 F 08/30/19 07:04 Pulse Rate 68 08/30/19 07:04 Respiratory Rate 18 08/30/19 08:00 Blood Pressure 114/66 08/30/19 07:04 O2 Sat by Pulse Oximetry 95 08/30/19 07:04 Intake & Output: Intake & Output 08/27/19 08/28/19 08/29/19 08/30/19 11:59 11:59 11:59 11:59 Intake Total 1188 Output Total 1200 Balance -12 Weight 64.7 kg - Lab Result Diagrams: 08/30/19 04:08 08/30/19 04:08 Lab Results-Last 24 Hrs: Lab Results-Last 24 Hours 08/29/19 08/29/19 08/29/19 Range/Units 18:40 18:40 18:40 WBC 9.7 (4.0-10.5) K/mm3 RBC 3.73 L (4.1-5.4) M/mm3 Hgb 12.3 (12.0-16.0) gm/dl Hct 37.7 (35-47) % MCV 101.1 H (78-100) fl MCH 33.0 H (26-32) pg MCHC 32.6 (32-36) g/dl RDW 12.5 (11.5-14.0) % Plt Count 216 (150-450) K/mm3 MPV 9.8 (7.5-11.0) fl Gran % 83.0 H (36.0-66.0) % Eos # (Auto) 0.05 (0-0.5) Absolute Lymphs (auto) 1.23 (1.0-4.6) Absolute Monos (auto) 0.35 (0.0-1.3) Lymphocytes % 12.7 L (24.0-44.0) % Monocytes % 3.6 (0.0-12.0) % Eosinophils % 0.5 (0.00-5.0) % Basophils % 0.2 (0.0-0.4) % Absolute Granulocytes 8.00 H (1.4-6.9) Basophils # 0.02 (0-0.4) Sodium 138 (137-145) mmol/L Potassium 4.0 (3.5-5.1) mmol/L Chloride 100 (98-107) mmol/L Carbon Dioxide 29 (22-30) mmol/L Anion Gap 13.4 (5-15) MEQ/L BUN 20 H (7-17) mg/dL Creatinine 0.98 (0.52-1.04) mg/dL Estimated GFR 56.8 ML/MIN Glucose 143 H (74-106) mg/dL Lactic Acid (0.4-2.0) Calcium 9.0 (8.4-10.2) mg/dL Magnesium 2.1 (1.6-2.3) mg/dL Total Bilirubin 0.30 (0.2-1.3) mg/dL AST 27 (14-36) U/L ALT 14 (0-35) U/L Alkaline Phosphatase 98 (38-126) U/L Troponin I < 0.012 (0.000-0.034) ng/mL Serum Total Protein 8.4 H (6.3-8.2) g/dL Albumin 4.4 (3.5-5.0) g/dL Urine Color (YELLOW) Urine Appearance (CLEAR) Urine pH (5-6) Ur Specific [place] (1.005-1.025) Urine Protein (Negative) Urine Ketones (NEGATIVE) Urine Blood (0-5) [place]/ul Urine Nitrite (NEGATIVE) Urine Bilirubin (NEGATIVE) Urine Urobilinogen (0-1) mg/dL Ur Leukocyte Esterase (NEGATIVE) Urine WBC (Auto) (0-5) /HPF Urine RBC (Auto) (0-2) /HPF U Epithel Cells (Auto) (FEW) /HPF Urine Bacteria (Auto) (NEGATIVE) /HPF Amorphous Crystals (NEGATIVE) /HPF Urine Culture Reflexed (NO) Urine Glucose (NEGATIVE) mg/dL 08/29/19 08/29/19 08/29/19 Range/Units 18:55 18:59 22:02 WBC (4.0-10.5) K/mm3 RBC (4.1-5.4) M/mm3 Hgb (12.0-16.0) gm/dl Hct (35-47) % MCV (78-100) fl MCH (26-32) pg MCHC (32-36) g/dl RDW (11.5-14.0) % Plt Count (150-450) K/mm3 MPV (7.5-11.0) fl Gran % (36.0-66.0) % Eos # (Auto) (0-0.5) Absolute Lymphs (auto) (1.0-4.6) Absolute Monos (auto) (0.0-1.3) Lymphocytes % (24.0-44.0) % Monocytes % (0.0-12.0) % Eosinophils % (0.00-5.0) % Basophils % (0.0-0.4) % Absolute Granulocytes (1.4-6.9) Basophils # (0-0.4) Sodium (137-145) mmol/L Potassium (3.5-5.1) mmol/L Chloride (98-107) mmol/L Carbon Dioxide (22-30) mmol/L Anion Gap (5-15) MEQ/L BUN (7-17) mg/dL Creatinine (0.52-1.04) mg/dL Estimated GFR ML/MIN Glucose (74-106) mg/dL Lactic Acid 1.4 (0.4-2.0) Calcium (8.4-10.2) mg/dL Magnesium (1.6-2.3) mg/dL Total Bilirubin (0.2-1.3) mg/dL AST (14-36) U/L ALT (0-35) U/L Alkaline Phosphatase (38-126) U/L Troponin I < 0.012 (0.000-0.034) ng/mL Serum Total Protein (6.3-8.2) g/dL Albumin (3.5-5.0) g/dL Urine Color YELLOW (YELLOW) Urine Appearance CLOUDY (CLEAR) Urine pH 8.0 (5-6) Ur Specific [place] 1.017 (1.005-1.025) Urine Protein NEGATIVE (Negative) Urine Ketones NEGATIVE (NEGATIVE) Urine Blood NEGATIVE (0-5) [place]/ul Urine Nitrite NEGATIVE (NEGATIVE) Urine Bilirubin NEGATIVE (NEGATIVE) Urine Urobilinogen NEGATIVE (0-1) mg/dL Ur Leukocyte Esterase TRACE (NEGATIVE) Urine WBC (Auto) 16-25 (0-5) /HPF Urine RBC (Auto) 3-5 (0-2) /HPF U Epithel Cells (Auto) RARE (FEW) /HPF Urine Bacteria (Auto) NONE (NEGATIVE) /HPF Amorphous Crystals FEW (NEGATIVE) /HPF Urine Culture Reflexed YES (NO) Urine Glucose NEGATIVE (NEGATIVE) mg/dL 08/30/19 08/30/19 08/30/19 Range/Units 00:50 04:08 04:08 WBC 7.6 (4.0-10.5) K/mm3 RBC 3.44 L (4.1-5.4) M/mm3 Hgb 11.6 L (12.0-16.0) gm/dl Hct 34.8 L (35-47) % MCV 101.2 H (78-100) fl MCH 33.7 H (26-32) pg MCHC 33.3 (32-36) g/dl RDW 12.3 (11.5-14.0) % Plt Count 149 L (150-450) K/mm3 MPV 10.8 (7.5-11.0) fl Gran % 71.0 H (36.0-66.0) % Eos # (Auto) 0.10 (0-0.5) Absolute Lymphs (auto) 1.53 (1.0-4.6) Absolute Monos (auto) 0.58 (0.0-1.3) Lymphocytes % 20.0 L (24.0-44.0) % Monocytes % 7.6 (0.0-12.0) % Eosinophils % 1.3 (0.00-5.0) % Basophils % 0.1 (0.0-0.4) % Absolute Granulocytes 5.42 (1.4-6.9) Basophils # 0.01 (0-0.4) Sodium (137-145) mmol/L Potassium (3.5-5.1) mmol/L Chloride (98-107) mmol/L Carbon Dioxide (22-30) mmol/L Anion Gap (5-15) MEQ/L BUN (7-17) mg/dL Creatinine (0.52-1.04) mg/dL Estimated GFR ML/MIN Glucose (74-106) mg/dL Lactic Acid (0.4-2.0) Calcium (8.4-10.2) mg/dL Magnesium (1.6-2.3) mg/dL Total Bilirubin (0.2-1.3) mg/dL AST (14-36) U/L ALT (0-35) U/L Alkaline Phosphatase (38-126) U/L Troponin I < 0.012 < 0.012 (0.000-0.034) ng/mL Serum Total Protein (6.3-8.2) g/dL Albumin (3.5-5.0) g/dL Urine Color (YELLOW) Urine Appearance (CLEAR) Urine pH (5-6) Ur Specific [place] (1.005-1.025) Urine Protein (Negative) Urine Ketones (NEGATIVE) Urine Blood (0-5) [place]/ul Urine Nitrite (NEGATIVE) Urine Bilirubin (NEGATIVE) Urine Urobilinogen (0-1) mg/dL Ur Leukocyte Esterase (NEGATIVE) Urine WBC (Auto) (0-5) /HPF Urine RBC (Auto) (0-2) /HPF U Epithel Cells (Auto) (FEW) /HPF Urine Bacteria (Auto) (NEGATIVE) /HPF Amorphous Crystals (NEGATIVE) /HPF Urine Culture Reflexed (NO) Urine Glucose (NEGATIVE) mg/dL 08/30/19 08/30/19 Range/Units 04:08 06:45 WBC (4.0-10.5) K/mm3 RBC (4.1-5.4) M/mm3 Hgb (12.0-16.0) gm/dl Hct (35-47) % MCV (78-100) fl MCH (26-32) pg MCHC (32-36) g/dl RDW (11.5-14.0) % Plt Count (150-450) K/mm3 MPV (7.5-11.0) fl Gran % (36.0-66.0) % Eos # (Auto) (0-0.5) Absolute Lymphs (auto) (1.0-4.6) Absolute Monos (auto) (0.0-1.3) Lymphocytes % (24.0-44.0) % Monocytes % (0.0-12.0) % Eosinophils % (0.00-5.0) % Basophils % (0.0-0.4) % Absolute Granulocytes (1.4-6.9) Basophils # (0-0.4) Sodium 139 (137-145) mmol/L Potassium 4.1 (3.5-5.1) mmol/L Chloride 105 (98-107) mmol/L Carbon Dioxide 28 (22-30) mmol/L Anion Gap 9.8 (5-15) MEQ/L BUN 15 (7-17) mg/dL Creatinine 0.82 (0.52-1.04) mg/dL Estimated GFR > 60.0 ML/MIN Glucose 96 (74-106) mg/dL Lactic Acid (0.4-2.0) Calcium 8.6 (8.4-10.2) mg/dL Magnesium (1.6-2.3) mg/dL Total Bilirubin (0.2-1.3) mg/dL AST (14-36) U/L ALT (0-35) U/L Alkaline Phosphatase (38-126) U/L Troponin I < 0.012 (0.000-0.034) ng/mL Serum Total Protein (6.3-8.2) g/dL Albumin (3.5-5.0) g/dL Urine Color (YELLOW) Urine Appearance (CLEAR) Urine pH (5-6) Ur Specific [place] (1.005-1.025) Urine Protein (Negative) Urine Ketones (NEGATIVE) Urine Blood (0-5) [place]/ul Urine Nitrite (NEGATIVE) Urine Bilirubin (NEGATIVE) Urine Urobilinogen (0-1) mg/dL Ur Leukocyte Esterase (NEGATIVE) Urine WBC (Auto) (0-5) /HPF Urine RBC (Auto) (0-2) /HPF U Epithel Cells (Auto) (FEW) /HPF Urine Bacteria (Auto) (NEGATIVE) /HPF Amorphous Crystals (NEGATIVE) /HPF Urine Culture Reflexed (NO) Urine Glucose (NEGATIVE) mg/dL Micro Results-Entire Visit: Microbiology 08/29/19 18:59 Urine Culture - Preliminary Urine, Void NO GROWTH TO DATE - Radiology Exams Ordered Rad Exams-Entire Visit: Radiology Procedures Category Date Time Status ABDOMEN AND PELVIS W/0 CONTRAS [CT] Routine Exams 08/30/19 07:13 Taken CHEST 1 VIEW (PORTABLE) Stat Exams 08/29/19 18:44 Completed CHEST WITHOUT CONTRAST [CT] Routine Exams 08/30/19 07:13 Taken HEAD WITHOUT CONTRAST [CT] Stat Exams 08/29/19 18:44 Completed Discharge Exam General Appearance: no apparent distress, alert Neurologic Exam: alert, oriented x 3, cooperative, normal mood/affect, nml cerebellar function, sensation nml, No motor deficits Eye Exam: PERRL, EOMI, eyes nml inspection Ears, Nose, Throat Exam: normal ENT inspection, pharynx normal, moist mucous membranes Neck Exam: normal inspection, non-tender, supple, full range of motion Respiratory Exam: normal breath sounds, lungs clear, No respiratory distress Cardiovascular Exam: regular rate/rhythm, normal heart sounds Gastrointestinal/Abdomen Exam: soft, No tenderness, No mass Pelvic Exam: deferred Rectal Exam: deferred Back Exam: normal inspection, normal range of motion, No CVA tenderness, No vertebral tenderness Extremity Exam: normal inspection, normal range of motion Skin Exam: normal color, warm, dry Final Diagnosis/Problem List - Final Discharge Diagnosis/Problem (1) Orthostatic dizziness Current Visit: Yes Status: Resolved Code(s): R42 - DIZZINESS AND GIDDINESS (2) Lung mass Current Visit: Yes Status: Ruled-out Priority: High Assessment & Plan: CT negative for lung mass Code(s): R91.8 - OTHER NONSPECIFIC ABNORMAL FINDING OF LUNG FIELD (3) HTN (hypertension) Current Visit: Yes Status: Chronic Priority: High Code(s): I10 - ESSENTIAL (PRIMARY) HYPERTENSION (4) Vertigo Current Visit: Yes Status: Chronic Assessment & Plan: continue antivert. Code(s): R42 - DIZZINESS AND GIDDINESS - Discharge Discharge Date: 08/30/19 Disposition: Home, Self-Care Condition: Stable Prescriptions: Continue Metoprolol Tartrate 25 mg PO BID Aspirin EC 81 mg [Ecotrin 81 mg] 81 mg PO DAILY Amlodipine Besylate 5 mg PO DAILY Lisinopril 20 mg [Zestril 20 MG] 30 mg PO BID Multivit-Min/FA/Lycopen/Lutein [Centrum Silver Tablet] 1 each PO DAILY Cranberry Fruit Concentrate [Urinary Health] 450 mg PO BID Meclizine HCl 12.5 mg PO TID #90 tablet Instructions: Vertigo (a Type of Dizziness), Vertigo (a Type of Dizziness) (DC) Follow up with: EVERARDO ADAN MD [Primary Care Provider] - 1 Week
[2019-08-30 12:35] VITALS: BP 117/59; PULSE 86; O2SAT 97
--- NOTE | 2019-08-30 20:36 | XRAY ---
Indication: Abnormal chest radiograph one day earlier. Mass. Multiple contiguous axial images obtained through the chest without contrast as ordered. Comparison: January 24, 2008. Heart is not enlarged with scattered coronary calcifications. Also extensive scattered aortic calcifications without aneurysm. No pathologic mediastinal lymphadenopathy. There is now a large hiatal hernia with intrathoracic stomach and also a loop of transverse colon herniating. Hernia produces bibasilar compressive atelectasis. Remaining lungs demonstrates a few tiny bilateral calcified granulomas. No infiltrate or effusion. Bony thorax demonstrates mild osteopenia, mild degenerative changes throughout the spine, left shoulder deformity either posttraumatic versus degenerative, and old right humeral fracture with fixation hardware. Remote appearing T12 and L1 superior endplate fractures with approximately 25% height loss. CT abdomen/pelvis reported separately. Impression: 1. New very large hiatal hernia with intrathoracic stomach and herniated transverse colon. Subsequent bilateral lower lobe compressive atelectasis. 2. Extensive scattered vascular calcifications and evidence for old granulomatous disease. 3. No acute cardiopulmonary abnormalities on this noncontrasted exam. 4. Chronic bony findings. Comment: Preliminary interpretation was made by [facility]. No critical discrepancy.
--- NOTE | 2019-08-30 20:37 | XRAY ---
Indication: Abnormal chest radiograph one day earlier. Mass. Multiple contiguous axial images obtained through the abdomen and pelvis without contrast as ordered. Comparison: None CT chest including hiatal hernia reported separately. 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 Noncontrasted stomach and bowel loops appear nonobstructed. Patient reports appendectomy. Scattered descending and sigmoid diverticulosis. No free fluid/air. 3.2 cm right lobe peripheral cyst. Tiny calcified splenic granuloma. Remaining liver, gallbladder, pancreas, spleen, adrenal glands, kidneys, ureters, and bladder appear unremarkable for noncontrast exam. Extensive scattered vascular calcifications. No AAA. Osseous structures demonstrate osteopenia, remote T12/L1 superior endplate fractures with 25% height loss, and moderate L4-S1 degenerative disc disease. Impression: 1. Hepatic cyst, calcified splenic granuloma, colonic diverticulosis, and chronic bony findings. 2. Remaining CT abdomen/pelvis without contrast exam is negative. Comment: Preliminary interpretation was made by [facility]. No critical discrepancy.
== END 2019-08-30 13:34 | disposition home or self-care (01) ==
LOC: ED 15:28 → MED SURG 21:10
PROVIDERS: ADMIT General Practice; ATTEND General Practice
DX: R42 Dizziness and giddiness (principal); R91.8 Other nonspecific abnormal finding of lung field; I10 Essential (primary) hypertension; Z79.899 Other long term (current) drug therapy
CPT/HCPCS: 36000; 36415; 70450; 71045; 71250; 74176; 80048; 80053; 81001; 83605; 83735; 84484; 85025; 87086; 93005; 96360; 96374; 99284; 99285; G0378; J2405; Q0162; A9270-GY